=== PATIENT | male | born 1990 | race Caucasian/White ===

== ENCOUNTER → 2025-02-17 15:58 | Outpatient (BNVA) | payer BC, MEDICAID, SELFPAY | PROVIDERS: Family Provider Nurse Practitioner Family; PCP Nurse Practitioner Family; Visit Provider Nurse Practitioner Family | DX: Z79.899 Other long term (current) drug therapy (principal); Z13.6 Encounter for screening for cardiovascular disorders; R53.83 Other fatigue; L29.89 Other pruritus; R68.82 Decreased libido; E34.9 Endocrine disorder, unspecified | CPT/HCPCS: 80053; 80061; 81003; 82306; 83036; 84402; 84403; 84443; 85025; 86038; 86200 ==

== ENCOUNTER 2025-03-01 12:22 | Emergency (ER) | payer BC, MEDICAID, SELFPAY ==
[2025-03-01 12:26] VITALS: BP 129/79; PULSE 79; RESP 18; TEMP 36.8; O2SAT 99; BMI 29.8
--- OUTSIDE RECORDS SUMMARY | 2025-03-01 12:28 | XMS_ITS | Encounter Summary ---
Author Organization [facility] Address [address] [place] [address] Care Team Providers Care Senior Systems Administrator Name Role Phone Ozzie Rios MD Primary Care Provider +1 -[phone] Encounter Details Date Type Department Care Team (Latest Contact Info) Description 02/28/2000 Outpatient Historical [facility] Medicine [address] [address] Ida Gomez NO ADDRESS ON FILE Unspecified otitis media (Primary Dx); Other otorrhea Social History Tobacco Use Types Packs/Day Years Used Date Smoking Tobacco: Never Assessed Sex and Gender Information Value Date Recorded Sex Assigned at Not on file Legal Sex Male 3:39 AM DIRECTOR OF AUTOMATION Gender Identity Not on file Sexual Orientation Not on file documented as of this encounter Plan of Treatment Not on file documented as of this encounter Visit Diagnoses Diagnosis Unspecified otitis media- Primary Other otorrhea documented in this encounter Care Teams Senior Systems Administrator Relationship Specialty Start Date End Date Ozzie Rios MD [address] [address] PCP - General Family Practice 01/30/17 documented as of this encounter
--- OUTSIDE RECORDS SUMMARY | 2025-03-01 12:28 | XMS_ITS | Encounter Summary ---
Author Organization [facility] Address [address] [place] [address] Care Team Providers Care Raise Driller Name Role Phone Ozzie Rios MD Primary Care Provider +1 -[phone] Encounter Details Date Type Department Care Team (Latest Contact Info) Description 02/22/2000 Outpatient Historical 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
--- OUTSIDE RECORDS SUMMARY | 2025-03-01 12:29 | XMS_ITS | Encounter Summary ---
Author Organization [facility] Address [address] [place] [address] Care Team Providers Care Rf Design Engineer Name Role Phone Ozzie Rios MD Primary Care Provider +1 -[phone] Encounter Details Date Type Department Care Team (Latest Contact Info) Description 02/02/2004 Outpatient Historical [facility] Medicine [address] [address] Afshan Knox MD NO ADDRESS ON FILE ACUTE URI NOS (Primary Dx); ACUTE PHARYNGITIS Social History Tobacco Use Types Packs/Day Years Used Date Smoking Tobacco: Never Assessed Sex and Gender Information Value Date Recorded Sex Assigned at Not on file Legal Sex Male 3:39 AM PYTHON DJANGO DEVELOPER Gender Identity Not on file Sexual Orientation Not on file documented as of this encounter Plan of Treatment Not on file documented as of this encounter Visit Diagnoses Diagnosis Acute upper respiratory infections of unspecified site- Primary Acute pharyngitis documented in this encounter Care Teams Rf Design Engineer Relationship Specialty Start Date End Date Ozzie Rios MD [address] [address] PCP - General Family Practice 01/30/17 documented as of this encounter
--- OUTSIDE RECORDS SUMMARY | 2025-03-01 12:29 | XMS_ITS | Encounter Summary ---
Author Organization [facility] Address [address] [place] [address] Care Team Providers Care Automatic Paint Sprayer Operator Name Role Phone Ozzei Rios MD Primary Care Provider +1 -[phone] Encounter Details Date Type Department Care Team (Latest Contact Info) Description 01/25/2002 Outpatient Historical [facility]- [address] [phone] Afshan Knox MD NO ADDRESS ON FILE ENLARGEMENT LYMPH NODES (Primary Dx) Social History Tobacco Use Types Packs/Day Years Used Date Smoking Tobacco: Never Assessed Sex and Gender Information Value Date Recorded Sex Assigned at Not on file 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
--- OUTSIDE RECORDS SUMMARY | 2025-03-01 12:29 | XMS_ITS | Encounter Summary ---
Author Organization [facility] Address [address] [place] [address] Care Team Providers Care Light Fixture Servicer Name Role Phone Ozzie Rios MD Primary Care Provider +1 -[phone] Encounter Details Date Type Department Care Team (Latest Contact Info) Description 12/25/1998 Outpatient Historical [facility]- [address] [phone] Fred Parsons DO NO ADDRESS ON FILE Contact dermatitis and other eczema, due to unspecified cause (Primary Dx) Social History Tobacco Use Types Packs/Day Years Used Date Smoking Tobacco: Never Assessed Sex and Gender Information Value Date Recorded Sex Assigned at Not on file 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
--- OUTSIDE RECORDS SUMMARY | 2025-03-01 12:29 | XMS_ITS | Encounter Summary ---
Author Organization [facility] Address [address] [place] [address] Care Team Providers Care Hand Candy Molder Name Role Phone Ozzie Rios MD Primary Care Provider +1 -[phone] Encounter Details Date Type Department Care Team (Latest Contact Info) Description 01/04/2004 Outpatient Historical [facility]- [address] [address] Too Tejada MD [address] [phone] ATTN DEFICIT NONHYPERACT (Primary Dx) Social History Tobacco Use Types Packs/Day Years Used Date Smoking Tobacco: Never Assessed Sex and Gender Information Value Date Recorded Sex Assigned at Not on file 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
--- OUTSIDE RECORDS SUMMARY | 2025-03-01 12:29 | XMS_ITS | Encounter Summary ---
Author Organization [facility] Address [address] [place] [address] Care Team Providers Care Edging Machine Catcher Name Role Phone Ozzie Rios MD Primary Care Provider +1 [phone] Encounter Details Date Type Department Care Team (Latest Contact Info) Description 03/14/2000 Outpatient Historical [facility] Medicine [address] [address] Fred Parsons DO NO ADDRESS ON FILE Infective otitis externa, unspecified (Primary Dx) Social History Tobacco Use Types Packs/Day Years Used Date Smoking Tobacco: Never Assessed Sex and Gender Information Value Date Recorded Sex Assigned at Not on file Legal Sex Male 3:39 AM DIETARY INTERNSHIP Gender Identity Not on file Sexual Orientation Not on file documented as of this encounter Plan of Treatment Not on file documented as of this encounter Visit Diagnoses Diagnosis Infective otitis externa, unspecified- Primary documented in this encounter Care Teams Edging Machine Catcher Relationship Specialty Start Date End Date Ozzie Rios MD [address] [address] PCP - General Family Practice 01/30/17 documented as of this encounter
--- OUTSIDE RECORDS SUMMARY | 2025-03-01 12:29 | XMS_ITS | Encounter Summary ---
Author Organization [facility] Address [address] [place] [address] Care Team Providers Care Care Analyst Name Role Phone Ozzie Rios MD Primary Care Provider +1 -[phone] Encounter Details Date Type Department Care Team (Latest Contact Info) Description 07/07/2001 Outpatient Historical [facility] Medicine [place] [address] [address] Fred Parsons DO NO ADDRESS ON FILE ENLARGEMENT LYMPH NODES (Primary Dx); ACUTE URI NOS Social History Tobacco Use Types Packs/Day Years Used Date Smoking Tobacco: Never Assessed Sex and Gender Information Value Date Recorded Sex Assigned at Not on file Legal Sex Male 3:39 AM 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
--- OUTSIDE RECORDS SUMMARY | 2025-03-01 12:29 | XMS_ITS | Encounter Summary ---
Author Organization [facility] Address [address] [place] [address] Care Team Providers Care A P Manager Name Role Phone Ozzie Rios MD Primary Care Provider +1 -[phone] Encounter Details Date Type Department Care Team (Latest Contact Info) Description 10/15/2004 Outpatient Historical [facility]- [address] [address] Trent Rios PA NO ADDRESS ON FILE HEAD INJURY UNSPECIFIED (Primary Dx); INJURY OF FACE AND NECK Social History Tobacco Use Types Packs/Day Years Used Date Smoking Tobacco: Never Assessed Sex and Gender Information Value Date Recorded Sex Assigned at Not on file 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
--- OUTSIDE RECORDS SUMMARY | 2025-03-01 12:29 | XMS_ITS | Encounter Summary ---
Author Organization [facility] Address [address] [place] [address] Care Team Providers Care Grinder Operator Automatic Name Role Phone Ozzie Rios MD Primary Care Provider +1 -[phone] Encounter Details Date Type Department Care Team (Latest Contact Info) Description 07/30/2005 Outpatient Historical [facility] Medicine [place] [address] [address] Fred Parsons DO NO ADDRESS ON FILE LUMBAGO (Primary Dx); CONSTIPATION NOS; HYPOGLYCEMIA NOS Social History Tobacco Use Types Packs/Day Years Used Date Smoking Tobacco: Never Assessed Sex and Gender Information Value Date Recorded Sex Assigned at Not on file Legal Sex Male 3:39 AM OTC CLERK Gender Identity Not on file Sexual Orientation Not on file documented as of this encounter Plan of Treatment Not on file documented as of this encounter Visit Diagnoses Diagnosis Lumbago- Primary Unspecified constipation Hypoglycemia, unspecified documented in this encounter Care Teams Grinder Operator Automatic Relationship Specialty Start Date End Date Ozzie Rios MD [address] [address] PCP - General Family Practice 01/30/17 documented as of this encounter
--- OUTSIDE RECORDS SUMMARY | 2025-03-01 12:29 | XMS_ITS | Encounter Summary ---
Author Organization [facility] Address [address] [place] [address] Care Team Providers Care Trip Rider Name Role Phone Ozzie Rios MD Primary Care Provider +1 -[phone] Encounter Details Date Type Department Care Team (Latest Contact Info) Description 03/31/2001 Outpatient Historical [facility]- [address] [place] [address] Fred Parsons, NO ADDRESS ON FILE STREP SORE THROAT (Primary Dx); NAUSEA WITH VOMITING Social History Tobacco Use Types Packs/Day Years Used Date Smoking Tobacco: Never Assessed Sex and Gender Information Value Date Recorded Sex Assigned at Not on file 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
--- OUTSIDE RECORDS SUMMARY | 2025-03-01 12:29 | XMS_ITS | Encounter Summary ---
Author Organization [facility] Address [address] [place] [address] Care Team Providers Care Director Of Strategic Initiatives Name Role Phone Ozzie Rios MD Primary Care Provider +1 -[phone] Encounter Details Date Type Department Care Team (Latest Contact Info) Description 09/28/2002 Outpatient Historical [facility]- [address] [phone] Fred Parsons DO NO ADDRESS ON FILE DERMATOPHYTOSIS SITE NOS (Primary Dx) Social History Tobacco Use Types Packs/Day Years Used Date Smoking Tobacco: Never Assessed Sex and Gender Information Value Date Recorded Sex Assigned at Not on file Legal Sex Male 3:39 AM AV SPECIALIST Gender Identity Not on file Sexual Orientation Not on file documented as of this encounter Plan of Treatment Not on file documented as of this encounter Visit Diagnoses Diagnosis Dermatophytosis of unspecified site- Primary documented in this encounter Care Teams Director Of Strategic Initiatives Relationship Specialty Start Date End Date Ozzie Rios MD [address] [address] PCP - General Family Practice 01/30/17 documented as of this encounter
--- OUTSIDE RECORDS SUMMARY | 2025-03-01 12:29 | XMS_ITS | Encounter Summary ---
Author Organization [facility] Address [address] [place] [address] Care Team Providers Care Shore Hand Dredge Or Barge Name Role Phone Ozzie Rios MD Primary Care Provider +1 -[phone] Encounter Details Date Type Department Care Team (Latest Contact Info) Description 08/11/2001 Outpatient Historical [facility] Medicine [place] [address] [address] Too Tejada MD [address] [facility] [address] [place] [address] ACUTE MAXILLARY SINUSITIS (Primary Dx); ACUTE PHARYNGITIS Social History Tobacco Use Types Packs/Day Years Used Date Smoking Tobacco: Never Assessed Sex and Gender Information Value Date Recorded Sex Assigned at Not on file Legal Sex Male 3:39 AM BUSINESS 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
--- OUTSIDE RECORDS SUMMARY | 2025-03-01 12:29 | XMS_ITS | Encounter Summary ---
Author Organization [facility] Address [address] [place] [address] Care Team Providers Care Primary Care Sales Representative Name Role Phone Ozzie Rios MD Primary Care Provider +1 -[phone] Encounter Details Date Type Department Care Team (Latest Contact Info) Description 07/20/2003 Outpatient Historical [facility] Medicine [place] [address] [address] Too Tejada MD [address] [facility] [address] [place] [address] ATTN DEFICIT W HYPERACT (Primary Dx) Social History Tobacco Use Types Packs/Day Years Used Date Smoking Tobacco: Never Assessed Sex and Gender Information Value Date Recorded Sex Assigned at Not on file 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
--- OUTSIDE RECORDS SUMMARY | 2025-03-01 12:29 | XMS_ITS | Encounter Summary ---
Author Organization [facility] Address [address] [place] [address] Care Team Providers Care Linseed Oil Refiner Name Role Phone Ozzie Rios MD Primary Care Provider +1 -[phone] Encounter Details Date Type Department Care Team (Latest Contact Info) Description 06/05/2005 Outpatient Historical [facility] Medicine [address] [address] Too Tejada MD [address] [facility] [address] [place] [phone] CONCUSSION NOS (Primary Dx) Social History Tobacco Use Types Packs/Day Years Used Date Smoking Tobacco: Never Assessed Sex and Gender Information Value Date Recorded Sex Assigned at Not on file 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
--- OUTSIDE RECORDS SUMMARY | 2025-03-01 12:29 | XMS_ITS | Encounter Summary ---
Author Organization [facility] Address [address] [place] [address] Care Team Providers Care Plant Maintenance Engineer Name Role Phone Ozzie Rios MD Primary Care Provider +1 -[phone] Encounter Details Date Type Department Care Team (Latest Contact Info) Description 06/14/2002 Outpatient Historical [facility]- [address] [address] Too Tejada MD [address] [phone] VACCINE FOR TETANUS + DIPHTHERIA (Primary Dx) Social History Tobacco Use Types Packs/Day Years Used Date Smoking Tobacco: Never Assessed Sex and Gender Information Value Date Recorded Sex Assigned at Not on file Legal Sex Male 3:39 AM TELECOMMUNICATOR Gender Identity Not on file Sexual Orientation Not on file documented as of this encounter Plan of Treatment Not on file documented as of this encounter Visit Diagnoses Diagnosis Need for prophylactic vaccination with tetanus-diphtheria (Td)- Primary documented in this encounter Care Teams Plant Maintenance Engineer Relationship Specialty Start Date End Date Ozzie Rios MD [address] [phone] PCP - General Family Practice 01/30/17 documented as of this encounter
--- OUTSIDE RECORDS SUMMARY | 2025-03-01 12:29 | XMS_ITS | Encounter Summary ---
Author Organization [facility] Address [address] [place] [address] Care Team Providers Care Stone Polisher Machine Name Role Phone Ozzie Rios MD Primary Care Provider +1 -[phone] Encounter Details Date Type Department Care Team (Latest Contact Info) Description 11/01/1999 Outpatient Historical [facility] Medicine [place] [address] [address] Fred Parsons DO NO ADDRESS ON FILE Other and unspecified noninfectious gastroenteritis and colitis(558.9) (Primary Dx) Social History Tobacco Use Types Packs/Day Years Used Date Smoking Tobacco: Never Assessed Sex and Gender Information Value Date Recorded Sex Assigned at Not on file Legal Sex Male 3:39 AM PERIPHERAL VASCULAR TECH Gender Identity Not on file Sexual Orientation Not on file documented as of this encounter Plan of Treatment Not on file documented as of this encounter Visit Diagnoses Diagnosis Other and unspecified noninfectious gastroenteritis and colitis(558.9)- Primary Other and unspecified noninfectious gastroenteritis and colitis documented in this encounter Care Teams Stone Polisher Machine Relationship Specialty Start Date End Date Ozzie Rios MD [address] [address] PCP - General Family Practice 01/30/17 documented as of this encounter
--- OUTSIDE RECORDS SUMMARY | 2025-03-01 12:29 | XMS_ITS | Encounter Summary ---
Author Organization [facility] Address [address] [place] [address] Care Team Providers Care Monogram Machine Operator Name Role Phone Ozzie Rios MD Primary Care Provider +1 -[phone] Encounter Details Date Type Department Care Team (Latest Contact Info) Description 01/19/2002 Outpatient Historical [facility]- [place] [address] [place] [address] Fred Parsons, NO ADDRESS ON FILE ENLARGEMENT LYMPH NODES (Primary Dx) Social History Tobacco Use Types Packs/Day Years Used Date Smoking Tobacco: Never Assessed Sex and Gender Information Value Date Recorded Sex Assigned at Not on file Legal Sex Male 3:39 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
--- OUTSIDE RECORDS SUMMARY | 2025-03-01 12:29 | XMS_ITS | Encounter Summary ---
Author Organization [facility] Address [address] [place] [address] Care Team Providers Care Plastic Press Operator Name Role Phone Ozzie Rios MD Primary Care Provider +1 -[phone] Encounter Details Date Type Department Care Team (Latest Contact Info) Description 01/27/2006 Outpatient Historical [facility] Medicine [address] [address] Too Salcedo MD NO ADDRESS ON FILE Routine Child Health Exam (Primary Dx) Social History Tobacco Use Types Packs/Day Years Used Date Smoking Tobacco: Never Assessed Sex and Gender Information Value Date Recorded Sex Assigned at Not on file Legal Sex Male 3:39 AM BARREL BRANDER Gender Identity Not on file Sexual Orientation Not on file documented as of this encounter Plan of Treatment Not on file documented as of this encounter Visit Diagnoses Diagnosis Routine child health exam- Primary Routine infant or child health check documented in this encounter Care Teams Plastic Press Operator Relationship Specialty Start Date End Date Ozzie Rios MD [address] [address] PCP - General Family Practice 01/30/17 documented as of this encounter
--- OUTSIDE RECORDS SUMMARY | 2025-03-01 12:29 | XMS_ITS | Encounter Summary ---
Author Organization [facility] Address [address] [place] [address] Care Team Providers Care Snaker Driving Horses Name Role Phone Ozzie Rios MD Primary Care Provider +1 -[phone] Encounter Details Date Type Department Care Team (Latest Contact Info) Description 08/01/1999 [facility] [address] [address] Fred Parsons, NO ADDRESS ON FILE Acute upper respiratory infections of unspecified site (Primary Dx) Social History Tobacco Use Types Packs/Day Years Used Date Smoking Tobacco: Never Assessed Sex and Gender Information Value Date Recorded Sex Assigned at Not on file Legal Sex Male 3:39 AM VOLLEYBALL COMMENTATOR Gender Identity Not on file Sexual Orientation Not on file documented as of this encounter Plan of Treatment Not on file documented as of this encounter Visit Diagnoses Diagnosis Acute upper respiratory infections of unspecified site- Primary documented in this encounter Care Teams Snaker Driving Horses Relationship Specialty Start Date End Date Ozzie Rios MD [address] [address] PCP - General Family Practice 01/30/17 documented as of this encounter
--- OUTSIDE RECORDS SUMMARY | 2025-03-01 12:29 | XMS_ITS | Encounter Summary ---
Author Organization [facility] Address [address] [place] [address] Care Team Providers Care Stone Rougher Name Role Phone Ozzie Rios MD Primary Care Provider +1 -[phone] Encounter Details Date Type Department Care Team (Latest Contact Info) Description 05/18/2002 Outpatient Historical [facility] Family Medicine- [address] [place] [address] Fred Parsons, NO ADDRESS ON FILE ACUTE URI NOS (Primary Dx) Social History Tobacco Use Types Packs/Day Years Used Date Smoking Tobacco: Never Assessed Sex and Gender Information Value Date Recorded Sex Assigned at Not on file 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
--- OUTSIDE RECORDS SUMMARY | 2025-03-01 12:29 | XMS_ITS | Clinical Summary ---
Author Organization [facility] Address [address] 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 Gender Identity Not on file Sexual Orientation Not on file Last Filed Vital Signs Vital Sign Reading Time Taken Comments Blood Pressure 124/86 01/30/2017 8:48 AM CDT Pulse 68 01/30/2017 8:48 AM CDT Temperature 36.6 C (97.8 F) 01/30/2017 8:48 AM CDT Respiratory Rate 16 01/30/2017 8:48 AM CDT Oxygen Saturation 98% 01/30/2017 8:48 AM CDT Inhaled Oxygen Concentration - - Weight 85.3 kg (188 lb) 01/30/2017 8:48 AM CDT Height 167.6 cm (5' 6 ) 01/30/2017 8:48 AM CDT Body Mass Index 30.34 01/30/2017 8:48 AM CDT Plan of Treatment Health Maintenance Due Date Last Done Comments DTAP/TDAP/TD VACCINES (1 - Tdap) 2009 HEPATITIS B VACCINES (1 of 3 - 19+ 3-dose series) 01/01 HPV VACCINES (1 - 3-dose SCDM series) 2017 INFLUENZA VACCINE (#1) 2024 Insurance JOVANNA ARELLANO [employer] Care Teams Airplane Designer Relationship Specialty Start Date End Date Ozzie Rios MD [address] [facility] [address] [place] [address] PCP - General Family Practice 01/30/17
--- OUTSIDE RECORDS SUMMARY | 2025-03-01 12:29 | XMS_ITS | Encounter Summary ---
Author Organization [facility] Address [address] [place] [address] Care Team Providers Care Class A Regional Truck Driver Name Role Phone Ozzie Rios MD Primary Care Provider +1 -[phone] Encounter Details Date Type Department Care Team (Latest Contact Info) Description 06/14/2005 Outpatient Historical [facility]- [address] [phone] Trent Rios PA NO ADDRESS ON FILE CONCUSSION NOS (Primary Dx) Social History Tobacco Use Types Packs/Day Years Used Date Smoking Tobacco: Never Assessed Sex and Gender Information Value Date Recorded Sex Assigned at Not on file 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
--- OUTSIDE RECORDS SUMMARY | 2025-03-01 12:29 | XMS_ITS | Encounter Summary ---
Author Organization [facility] Address [address] [place] [address] Care Team Providers Care Certified Nurse Midwife Name Role Phone Ozzie Rios MD Primary Care Provider +1 -[phone] Encounter Details Date Type Department Care Team (Latest Contact Info) Description 12/07/[address] 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
--- OUTSIDE RECORDS SUMMARY | 2025-03-01 12:29 | XMS_ITS | Encounter Summary ---
Author Organization [facility] Address [address] [place] [address] Care Team Providers Care Shank Archer Name Role Phone Ozzie Rios MD Primary Care Provider +1 -[phone] Encounter Details Date Type Department Care Team (Latest Contact Info) Description 04/02/[address] [facility]- [address] [phone] Trent Rios PA NO ADDRESS ON FILE ACUTE URI NOS (Primary Dx) Social History Tobacco Use Types Packs/Day Years Used Date Smoking Tobacco: Never Assessed Sex and Gender Information Value Date Recorded Sex Assigned at Not on file Legal Sex Male 3:[address] HELPER Gender Identity Not on file Sexual Orientation Not on file documented as of this encounter Plan of Treatment Not on file documented as of this encounter Visit Diagnoses Diagnosis Acute upper respiratory infections of unspecified site- Primary documented in this encounter Care Teams Shank Archer Relationship Specialty Start Date End Date Ozzie Rios MD [address] [address] PCP - General Family Practice 01/30/17 documented as of this encounter
--- OUTSIDE RECORDS SUMMARY | 2025-03-01 12:29 | XMS_ITS | Encounter Summary ---
Author Organization [facility] Address [address] [place] [address] Care Team Providers Care Oracle Webcenter Consultant Name Role Phone Ozzie Rios MD Primary Care Provider +1 -[phone] Encounter Details Date Type Department Care Team (Latest Contact Info) Description 03/03/2002 Outpatient Historical [facility] [address] [address] Too Tejada MD [address] 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 Gender Identity Not on file Sexual Orientation Not on file documented as of this encounter Plan of Treatment Not on file documented as of this encounter Visit Diagnoses Diagnosis Other, multiple, and unspecified sites, insect bite, nonvenomous, without mention of infection(919.4)- Primary Other, multiple, and unspecified sites, insect bite, nonvenomous, without mention of infection documented in this encounter Care Teams Oracle Webcenter Consultant Relationship Specialty Start Date End Date Ozzie Rios MD [address] [address] PCP - General Family Practice 01/30/17 documented as of this encounter
--- OUTSIDE RECORDS SUMMARY | 2025-03-01 12:29 | XMS_ITS | Encounter Summary ---
Author Organization [facility] Address [address] [place] [address] Care Team Providers Care Coremaker Pipe Name Role Phone Ozzie Rios MD Primary Care Provider +1 -[phone] Encounter Details Date Type Department Care Team (Latest Contact Info) Description 06/08/2004 Outpatient Historical [facility]- [address] [address] Trent Rios PA NO ADDRESS ON FILE ECZEM DERMATITIS EYELID (Primary Dx); Dysfunct eustachian tube; DERMATITIS NOS Social History Tobacco Use Types Packs/Day Years Used Date Smoking Tobacco: Never Assessed Sex and Gender Information Value Date Recorded Sex Assigned at Not on file 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
--- OUTSIDE RECORDS SUMMARY | 2025-03-01 12:29 | XMS_ITS | Encounter Summary ---
Author Organization [facility] Address [address] [place] [address] Care Team Providers Care Principal Account Clerk Name Role Phone Ozzie Rios MD Primary Care Provider +1 -[phone] Encounter Details Date Type Department Care Team (Latest Contact Info) Description 04/10/2004 Outpatient Historical [facility]- [address] [address] Too Tejada MD [address] [phone] ATTN DEFICIT NONHYPERACT (Primary Dx); SEBORRHEA Social History Tobacco Use Types Packs/Day Years Used Date Smoking Tobacco: Never Assessed Sex and Gender Information Value Date Recorded Sex Assigned at Not on file 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
--- OUTSIDE RECORDS SUMMARY | 2025-03-01 12:29 | XMS_ITS | Encounter Summary ---
Author Organization [facility] Address [address] [place] [address] Care Team Providers Care Improvement Analyst Name Role Phone Ozzie Rios MD Primary Care Provider +1 -[phone] Encounter Details Date Type Department Care Team (Late st Contact Info) Description 01/31/[address] [facility] Dermatology- 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
--- OUTSIDE RECORDS SUMMARY | 2025-03-01 12:29 | XMS_ITS | Encounter Summary ---
Author Organization [facility] Address [address] [place] [address] Care Team Providers Care Supervisor Aircraft Maintenance Name Role Phone Ozzie Rios MD Primary Care Provider +1 -[phone] Encounter Details Date Type Department Care Team (Latest Contact Info) Description 07/13/2004 Outpatient Historical [facility] Medicine [address] [address] Too Tejada MD [address] [facility] 200 [place] [phone] ACUTE BRONCHITIS (Primary Dx) Social History Tobacco Use Types Packs/Day Years Used Date Smoking Tobacco: Never Assessed Sex and Gender Information Value Date Recorded Sex Assigned at Not on file 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
--- OUTSIDE RECORDS SUMMARY | 2025-03-01 12:29 | XMS_ITS | Encounter Summary ---
Author Organization [facility] Address [address] [place] [address] Care Team Providers Care Catering Service Manager Name Role Phone Ozzie Rios MD Primary Care Provider +1 -[phone] Encounter Details Date Type Department Care Team (Latest Contact Info) Description 09/19/2004 Outpatient Historical [facility]- [address] [phone] Trent Rios PA NO ADDRESS ON FILE STREP SORE THROAT (Primary Dx); OTITIS MEDIA NOS Social History Tobacco Use Types Packs/Day Years Used Date Smoking Tobacco: Never Assessed Sex and Gender Information Value Date Recorded Sex Assigned at Not on file 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
--- OUTSIDE RECORDS SUMMARY | 2025-03-01 12:29 | XMS_ITS | Encounter Summary ---
Author Organization [facility] Address [address] [place] [address] Care Team Providers Care Motorcycle Mechanic Apprentice Name Role Phone Ozzie Rios MD Primary Care Provider +1 -[phone] Encounter Details Date Type Department Care Team (Latest Contact Info) Description 04/29/2005 Outpatient Historical [facility]- [address] [phone] Trent Rios PA NO ADDRESS ON FILE ACUTE URI NOS (Primary Dx); HERPES SIMPLEX NOS Social History Tobacco Use Types Packs/Day Years Used Date Smoking Tobacco: Never Assessed Sex and Gender Information Value Date Recorded Sex Assigned at Not on file 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
--- OUTSIDE RECORDS SUMMARY | 2025-03-01 12:29 | XMS_ITS | Encounter Summary ---
Author Organization [facility] Address [address] [place] [address] Care Team Providers Care Vice President Of Customer Service Name Role Phone Ozzie Rios MD Primary Care Provider +1 -[phone] Encounter Details Date Type Department Care Team (Latest Contact Info) Description 09/30/2006 Outpatient Historical [facility] Medicine [place] [address] [address] Katie Mckinley, DOUBLE CUTTER [address] [place] [address] Contusion Genital Organs (Primary Dx) Social History Tobacco Use Types Packs/Day Years Used Date Smoking Tobacco: Never Assessed Sex and Gender Information Value Date Recorded Sex Assigned at Not on file 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
--- OUTSIDE RECORDS SUMMARY | 2025-03-01 12:29 | XMS_ITS | Encounter Summary ---
Author Organization [facility] Address [address] [place] [address] Care Team Providers Care Apartment Maintenance Manager Name Role Phone Ozzie Rios MD Primary Care Provider +1 -[phone] Encounter Details Date Type Department Care Team (Latest Contact Info) Description 07/23/1999 Outpatient Historical [facility] Medicine [place] [address] [address] Fred Parsons DO NO ADDRESS ON FILE Injury, other and unspecified, knee, leg, ankle, and foot (Primary Dx) Social History Tobacco Use Types Packs/Day Years Used Date Smoking Tobacco: Never Assessed Sex and Gender Information Value Date Recorded Sex Assigned at Not on file 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
--- OUTSIDE RECORDS SUMMARY | 2025-03-01 12:29 | XMS_ITS | Encounter Summary ---
Author Organization [facility] Address [address] [place] [address] Care Team Providers Care Business Systems Consultant Name Role Phone Ozzie Rios MD Primary Care Provider +1 -[phone] Encounter Details Date Type Department Care Team (Latest Contact Info) Description 06/12/1999 Outpatient Historical [facility] Medicine [address] [address] Fred Parsons DO NO ADDRESS ON FILE Influenza with other respiratory manifestations (Primary Dx) Social History Tobacco Use Types Packs/Day Years Used Date Smoking Tobacco: Never Assessed Sex and Gender Information Value Date Recorded Sex Assigned at Not on file 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
--- OUTSIDE RECORDS SUMMARY | 2025-03-01 12:29 | XMS_ITS | Encounter Summary ---
Author Organization [facility] Address [address] [place] [address] Care Team Providers Care Bunch Breaker Name Role Phone Ozzie Rios MD Primary Care Provider +1 -[phone] Encounter Details Date Type Department Care Team (Latest Contact Info) Description 01/31/2006 Outpatient Historical [facility] Medicine [place] [address] [address] Florencia Islas NP NO ADDRESS ON FILE Acute Pharyngitis (Primary Dx); Acute Sinusitis, Unspecified Social History Tobacco Use Types Packs/Day Years Used Date Smoking Tobacco: Never Assessed Sex and Gender Information Value Date Recorded Sex Assigned at Not on file 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
--- OUTSIDE RECORDS SUMMARY | 2025-03-01 12:29 | XMS_ITS | Encounter Summary ---
Author Organization [facility] Address [address] [place] [address] Care Team Providers Care Molder Name Role Phone Ozzie Rios MD Primary Care Provider +1 -[phone] Encounter Details Date Type Department Care Team (Latest Contact Info) Description 03/22/2003 Outpatient Historical [facility] Family Medicine- [address] [place] [address] Fred Parsons, NO ADDRESS ON FILE STREP SORE THROAT (Primary Dx) Social History Tobacco Use Types Packs/Day Years Used Date Smoking Tobacco: Never Assessed Sex and Gender Information Value Date Recorded Sex Assigned at Not on file 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
--- OUTSIDE RECORDS SUMMARY | 2025-03-01 12:29 | XMS_ITS | Clinical Summary ---
Author Organization [facility] Address [address] [facility] Attn: Epic Prelude ADT [place] BRITO [address] Care Team Providers Care Patient Account Representative Name Role Phone Ozzie Rios MD Primary Care Provider [phone] Allergies No known active allergies Social History Tobacco Use Types Packs/Day Years Used Date Smoking Tobacco: Every Day Cigarettes Smokeless Tobacco: Never Comments:Quit smoking: only tried chewing Alcohol Use Standard Drinks/Week Comments Yes 0 (1 standard drink = 0.6 oz pur e alcohol) Sex and Gender Information Value Date Recorded Sex Assigned at Not on file Legal Sex Male 4:10 PM PIPEFITTER Gender Identity Not on file Sexual Orientation Not on file Last Filed Vital Signs Vital Sign Reading Time Taken Comments Blood Pressure 124/86 01/30/2017 8:48 AM CDT Pulse 68 01/30/2017 8:48 AM CDT Temperature 36.6 C (97.8 F) 01/30/2017 8:48 AM CDT Respiratory Rate 16 01/30/2017 8:48 AM CDT Oxygen Saturation - - Inhaled Oxygen Concentration - - Weight 85.3 [...] SCDM series) 2017 INFLUENZA VACCINE (#1) 2024 Care Teams Patient Account Representative Relationship Specialty Start Date End Date Ozzie Rios MD [address] [address] PCP - General Family Practice 01/30/17
--- OUTSIDE RECORDS SUMMARY | 2025-03-01 12:29 | XMS_ITS | Encounter Summary ---
Author Organization [facility] Address [address] [place] [address] Care Team Providers Care Transition Advisor Name Role Phone Ozzie Rios MD Primary Care Provider [phone] Encounter Details Date Type Department Care Team (Late st Contact Info) Description 01/06/2013 Ancillary Orders [facility] Admitting [address] [place] [address] Cee Sr., ZEFERINO Garcia [address] [place] [address] Sternum pain (Primary Dx); Accident Social History Tobacco Use Types Packs/Day Years Used Date Smoking Tobacco: Never Assessed Sex and Gender Information Value Date Recorded Sex Assigned at Not on file 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 The frontal oblique projection shows no displaced fracture. IMPRESSION normal sternal views Procedure Note Steven Verde MD - 01/06/2013 PROCEDURE XR STERNUM, two views 06 January 2013 DESCRIPTION Lateral views of the sternum fail to reveal evidence of fracture or deformity. The frontal oblique projection shows no displaced fracture. IMPRESSION normal sternal views Trent Mike Sr., MRI MANAGER DIAGNOSTIC IMAGIN G ORDERABLES Final Result * XR CHEST PA AND LATERAL (01/06/2013 11:32 AM CDT) Anatomical Region Laterality Modality Chest Computed Radiogr aphy 01/06/2013 11:1 1 AM CDT Narrative 01/06/2013 1:11 PM CDT PROCEDURE CHEST, 2 views 06 January 2013 COMPARISON Current: PA and lateral chest 1110 hours Prior: no previous studies available for comparison DESCRIPTION Frontal view of the chest shows no infiltrate or atelectasis and the cardiomediastinal silhouette appears normal. On the lateral view, no infiltrate or spine sign is seen. Costophrenic angles are normal posteriorly. IMPRESSION normal chest views Procedure Note Steven Verde MD - 01/06/2013 PROCEDURE CHEST, 2 views 06 January 2013 COMPARISON Current: PA and lateral chest 1110 hours Prior: no previous studies available for comparison DESCRIPTION Frontal view of the chest shows no infiltrate or atelectasis and the cardiomediastinal silhouette appears normal. On the lateral view, no infiltrate or spine sign is seen. Costophrenic angles are normal posteriorly. IMPRESSION normal chest views Trent Mike Sr., MRI MANAGER DIAGNOSTIC IMAGIN G ORDERABLES Final Result documented in this encounter Visit Diagnoses Diagnosis Sternum pain- Primary Chest pain, unspecified Accident Unspecified accident Sternum pain Chest pain, unspecified Accident Unspecified accident Sternum pain Chest pain, unspecified Accident Unspecified accident documented in this encounter Care Teams Transition Advisor Relationship Specialty Start Date End Date Ozzie Rios MD [address] [facility] [address] [place] [phone] PCP - General Family Practice 01/30/17 documented as of this encounter
--- OUTSIDE RECORDS SUMMARY | 2025-03-01 12:30 | XMS_ITS | Encounter Summary ---
Author Organization [facility] Address [address] [place] [address] Care Team Providers Care Nuclear Radiologist Name Role Phone Ozzie Rios MD Primary Care Provider [phone] Encounter Details Date Type Department Care Team (Latest Contact Info) Description 01/29/2002 Outpatient Historical [facility]- [address] [phone] Afshan Knox MD NO ADDRESS ON FILE LYMPHADENITIS NOS (Primary Dx) Social History Tobacco Use Types Packs/Day Years Used Date Smoking Tobacco: Never Assessed Sex and Gender Information Value Date Recorded Sex Assigned at Not on file 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
--- OUTSIDE RECORDS SUMMARY | 2025-03-01 12:30 | XMS_ITS | Encounter Summary ---
Author Organization [facility] Address [address] [place] [address] Care Team Providers Care Protection Consultant Name Role Phone Ozzie Rios MD Primary Care Provider [phone] Encounter Details Date Type Department Care Team (Latest Contact Info) Description 02/12/2002 Outpatient Historical [facility]- [address] [phone] Fred Parsons DO NO ADDRESS ON FILE ENLARGEMENT LYMPH NODES (Primary Dx) Social History Tobacco Use Types Packs/Day Years Used Date Smoking Tobacco: Never Assessed Sex and Gender Information Value Date Recorded Sex Assigned at Not on file 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
--- NOTE | 2025-03-01 12:35 | US_ITS ---
WS: [id number] RIGHT UPPER QUADRANT ULTRASOUND HISTORY: Right upper quadrant pain, concern for cholecystitis COMPARISON: None available. Liver: 15.1 cm in length. Normal size liver and echogenicity. No bile duct dilatation or mass. Portal Vein: Normal hepatopetal flow with monophasic waveform. Gallbladder: Normally distended gallbladder with no stones or wall thickening. CBD: 0.2 cm Pancreas: Obscured by body habitus. Right kidney: 10.5 cm in length. Normal size and echogenicity. No hydronephrosis or mass. Aorta and IVC: Unremarkable abdominal aorta and IVC. No ascites. US/US gall bladder 20357 IMPRESSION: Normal right upper quadrant ultrasound.
[2025-03-01 13:09] LABS: Hematocrit 41.2 % (37-53); Hemoglobin 14.20 g/dL (11.27-16.99); Mean Corpuscular HGB Conc 34.5 g/dL (30-55); Mean Corpuscular Hemoglobin 29.3 pg (27-33); Mean Corpuscular Volume 84.9 fl (82-101); Nucleated Red Blood Cells % 0 %; Platelet Count 208 10^3/cmm (157-399); Red Blood Count 4.85 10^6/uL (3.85-5.65); White Blood Count 7.97 10^3/uL (3.29-11.43)
[2025-03-01 13:19] LABS: Alanine Aminotransferase 18 U/L (0-41); Albumin Level 4.3 g/dL (3.5-5.2); Alkaline Phosphatase 101 U/L (40-130); Anion Gap 14.1 (5-19); Aspartate Amino Transferase 21 U/L (0-40); Blood Urea Nitrogen 11 mg/dL (6-20); Calcium 9.0 mg/dL (8.5-10.5); Carbon Dioxide 25 mmol/L (22-29); Chloride 101 mmol/L (98-107); Creatinine Clr Calc Pharmacy 95.2504; Globulin 3.0 g/dL (1.3-4.6); Glucose 115 mg/dL (65-115); Osmolality Calculated 282 mOsm/kg (285-295); Potassium 4.1 mmol/L (3.5-5.1); Sodium 136 mmol/L (136-145); Total Protein 7.3 g/dL (6.6-8.7)
--- NOTE | 2025-03-01 14:07 | ED_ITS ---
HPI - Abdominal Pain 2 General: Chief Complaint: Abdominal Pain Stated Complaint: upper abd pain, n/d/f Time Seen by Provider: 03/01/25 14:01 History of Present Illness: 35-year-old male presents emergency room had a transient episode of right upper quadrant abdominal pain began 2 hours ago. Pain began last approximately 30 minutes and then resolved spontaneously patient was very nauseous but never vomited. No further pain at this time denies dysuria urgency or frequency Associated Symptoms: Reports nausea and vomiting; Denies chills, coffee ground emesis, diarrhea, dysuria, fever(s), hematochezia, hematemesis and melena Related Data Previous Rx's ?Medication ?Instructions ?Recorded fluoxetine 20 mg capsule (Prozac) 20 mg PO DAILY 30 da ys #30 caps 02/17/25 ibuprofen 800 mg tablet 800 mg PO Q8H PRN pain 30 da ys #60 02/17/25 tabs omeprazole 40 mg capsule,delayed 40 mg PO DAILY 12 wee ks #90 caps 03/01/25 release Allergies Allergy/AdvReac Type Severity Reaction Status Date / Time No Known Allergies Allergy Verified 02/17/25 15:08 Review of Systems 2 Const: Denies: fever(s) or chills Card: Denies: chest pain Resp: Denies: dyspnea GI: Reports: abdominal pain, nausea and vomiting; Denies: hematemesis, coffee ground emesis, diarrhea, hematochezia or melena : Denies: dysuria, urinary frequency or urinary urgency Musc: Denies: neck pain or back pain Skin/Breast: Denies: rash PFSH ED 2 PFSH: Medical History Anxiety and depression Fatigue, unspecified type Hypotestosteronemia Decreased libido Chronic pruritic rash in adult Encounter for screening for cardiovascular disorders Medication management Dental infection Dental caries Social History Smoking and tobacco/nicotine status: never used tobacco/nicotine Physical Exam 2 Const: COMMON NORMALS: no acute distress GENERAL APPEARANCE: cooperative and comfortable ORIENTATION/CONSCIOUSNESS: Yes awake, Yes oriented to person, Yes oriented to place and Yes oriented to time HENMT: COMMON NORMALS: normocephalic, atraumatic and hearing grossly normal bilaterally HEAD & SCALP: normocephalic and atraumatic Resp: COMMON NORMALS: normal respiratory effort, No retractions, No use of accessory muscles and clear to auscultation bilaterally AUSCULTATION: clear to auscultation bilaterally Cardio: COMMON NORMALS: regular rate, regular rhythm and No murmurs present (Cardio) RATE: regular rate RHYTHM: regular rhythm GI: COMMON NORMALS: No hepatosplenomegaly present AUSCULTATION: Yes normoactive bowel sounds PALPATION: Yes Tenderness to palpation present (GI) Details: RUQ, No Guarding due to palpation present (GI) and Yes No hepatosplenomegaly present Extremity: COMMON NORMALS: normal to inspection, capillary refill normal, no clubbing, cyanosis or edema, no calf tenderness and no pedal edema Neuro: SENSORIUM/ORIENTATION: Yes oriented to person, Yes oriented to place and Yes oriented to time Skin: COMMON NORMALS: no rashes or lesions noted GENERAL SKIN EXAM: no rashes or lesions noted Course 2 Vital Signs: Vital signs: Vital Signs Temperature 98.3 F 03/01/25 12:26 Pulse Rate 79 03/01/25 12:26 Respiratory Rate 18 03/01/25 12:26 Blood Pressure 129/79 03/01/25 12:26 Pulse Oximetry 99 03/01/25 12:26 Oxygen Delivery Me thod Room Air 03/01/25 12:26 MDM - Abdominal Pain Medical Decision Making Patient has symptoms suggestive of dyspepsia/GERD. He has had this previously. Gallbladder ultrasound unremarkable white count normal. Liver functions did not show any abnormality. It is possible that some of his symptoms are biliary dyskinesia discussed the patient can be done to evaluate for biliary dyskinesia by HIDA scan if symptoms were to persist. Recommend starting on proton pump inhibitor follow-up with primary care if recurs. Medical Records I reviewed the patient's medical records. Lab Data I reviewed the patient's lab results. 03/01/25 12:55 03/01/25 12:55 Labs/Radiology: Radiology Impressions Gallbladder Ultrasound 03/01/25 12:35 IMPRESSION: Normal right upper quadrant ultrasound. Laboratory Results WBC 7.97 10^3/uL (3.29-11.43) 03/01/25 12:55 RBC 4.85 10^6/uL (3.85-5.65) 03/01/25 12:55 Hgb 14.20 g/dL (11.27-16.99) 03/01/25 12:55 Hct 41.2 % (37-53) 03/01/25 12:55 MCV 84.9 fl (82-101) 03/01/25 12:55 MCH 29.3 pg (27-33) 03/01/25 12:55 MCHC 34.5 g/dL (30-55) 03/01/25 12:55 RDW 12.8 % (12.1-15.1) 03/01/25 12:55 Plt Count 208 10^3/cmm (157-399) 03/01/25 12:55 MPV 9.5 fL (7.4-10.4) 03/01/25 12:55 Neut % (Auto) 70.7 % 03/01/25 12:55 Lymph % (Auto) 18.3 % 03/01/25 12:55 [place] % (Auto) 8.4 % 03/01/25 12:55 Eos % (Auto) 1.8 % 03/01/25 12:55 Baso % (Auto) 0.5 % 03/01/25 12:55 Neut # (Auto) 5.64 10^3/uL (1.8-7.7) 03/01/25 12:55 Lymph # (Auto) 1.5 10^3/uL (0.8-4.8) 03/01/25 12:55 [place] # (Auto) 0.7 10^3/uL (0.2-0.9) 03/01/25 12:55 Eos # (Auto) 0.1 10^3/uL (0.0-0.8) 03/01/25 12:55 Baso # (Auto) 0.0 10^3/uL (0.0-0.1) 03/01/25 12:55 Nucleated RBC % (auto) 0 % 03/01/25 12:55 Nucleated RBCs # 0.0 /100WBC 03/01/25 12:55 Sodium 136 mmol/L (136-145) 03/01/25 12:55 Potassium 4.1 mmol/L (3.5-5.1) 03/01/25 12:55 Chloride 101 mmol/L (98-107) 03/01/25 12:55 Carbon Dioxide 25 mmol/L (22-29) 03/01/25 12:55 Anion Gap 14.1 (5-19) 03/01/25 12:55 BUN 11 mg/dL (6-20) 03/01/25 12:55 Creatinine 1.1 mg/dL (0.7-1.2) 03/01/25 12:55 GFR Calculation 76.2 mL/min (90-130) L 03/01/25 12:55 Glucose 115 mg/dL (65-115) 03/01/25 12:55 Calculated Osmolality 282 mOsm/kg (285-295) L 03/01/25 12:55 Calcium 9.0 mg/dL (8.5-10.5) 03/01/25 12:55 Total Bilirubin 0.3 mg/dL (0.15-1.2) 03/01/25 12:55 AST 21 U/L (0-40) 03/01/25 12:55 ALT 18 U/L (0-41) 03/01/25 12:55 Alkaline Phosphatase 101 U/L (40-130) 03/01/25 12:55 Total Protein 7.3 g/dL (6.6-8.7) 03/01/25 12:55 Albumin 4.3 g/dL (3.5-5.2) 03/01/25 12:55 Globulin 3.0 g/dL (1.3-4.6) 03/01/25 12:55 Urine Color Yellow (Yellow) 03/01/25 14:02 Urine Appearance Clear (CLEAR) 03/01/25 14:02 Urine pH 7.5 (5-7) 03/01/25 14:02 Ur Specific Center [place] 1.006 (1.005-1.030) 03/01/25 14:02 Urine Protein Negative (Negative) 03/01/25 14:02 Urine Glucose (UA) Negative (Normal) 03/01/25 14:02 Urine Ketones Negative (Negative) 03/01/25 14:02 Urine Blood Negative (Negative) 03/01/25 14:02 Urine Nitrate Negative (Negative) 03/01/25 14:02 Urine Bilirubin Negative (Negative) 03/01/25 14:02 Urine Urobilinogen 0.2 mg/dL (Negative) 03/01/25 14:02 Ur Leukocyte Esterase Negative (Negative) 03/01/25 14:02 Amorphous Sediment Not Reportable 03/01/25 14:02 All radiology interpretation(s) finalized by discharge Discharge Plan Discharge Patient Disposition: Home Clinical Impression: Abdominal pain Condition: Stable Prescriptions: New omeprazole 40 mg capsule,delayed release(DR/EC) 40 mg PO DAILY 84 Days Qty: 90 0RF No Action ibuprofen 800 mg tablet 800 mg PO Q8H PRN (Reason: pain) 30 Days Qty: 60 1RF fluoxetine [Prozac] 20 mg capsule 20 mg PO DAILY 30 Days Qty: 30 1RF Discharge Orders: Discharge ED (Routine); Ordered 03/01/25 Ordered By: Nolan Bar Discharge Diet: As Directed Patient Instructions: Diet for Stomach Ulcers and Gastritis (ED), GERD (Gastroesophageal Reflux Disease) (ED), Abdominal Pain (ED), Opioid Safety, Pain Management, Patient Portal & Gale Instructions Activity Restrictions/Additional Instructions: Thank you for choosing [facility] for your healthcare needs today. It is very important that you follow up as instructed or that you return to the Emergency Department should you have concerns or if your condition changes or worsens in any way. Emergency department visits are focused on emergent conditions, in some cases you may require further evaluation on an outpatient basis. You were seen in the emergency room with complaints of abdominal pain. Your pain resolved at the time he arrived your laboratory studies normal gallbladder ultrasound was negative. Suspect this may be related to reflux and foods that you have eaten recommend taking Prilosec daily for the next 6 to 8 weeks or longer. Follow-up with your primary care doctor symptoms worsen or change can return. You are given instructions for dietary adjustments that may be helpful as well. (Please note that included in your discharge packet is information concerning opioid safety and pain management. This information is given to all patients were discharged from the ER regardless of their discharge diagnosis or the medicines they usually take or are prescribed.) Print Language: Kyrgyz Coding Level of Care Code ED Research Analyst for [place] Lorenzo
[2025-03-01 14:23] LABS: Add Urine Microscopic? NO
[2025-03-01 14:27] LABS: Glucose Urine UA Negative (Normal); Nitrate Urine Negative (Negative); Specific Gravity, Urine 1.006 (1.005-1.030)
[2025-03-01 14:35] LABS: Charge for UA Resulting for Rev
== END 2025-03-01 14:42 | disposition home or self-care (01) ==
PROVIDERS: Emergency Medicine; Emergency Provider Family Medicine
DX: R10.11 Right upper quadrant pain (principal)
CPT/HCPCS: 36415; 76705; 80053; 81003; 85025; 99284